=== PATIENT | male | born 1990 | race Caucasian/White ===

== ENCOUNTER 2020-03-15 08:34 | Emergency (ER) | payer OTHER, BC ==
[2020-03-15] MEDS ORDERED: Bupivacaine 0.5% 10 ML SDV INJECT ONE (08:55)
--- NOTE | 2020-03-15 08:57 | EDM.PDOC ---
ED HPI GENERAL MEDICAL PROBLEM - General Chief Complaint: Upper Extremity Injury/Pain Stated Complaint: STAPLE IN RIGHT THUMB Time Seen by Provider: 03/15/20 08:52 Source of Information: Reports: Patient History Limitations: Reports: No Limitations - History of Present Illness INITIAL COMMENTS - FREE TEXT/NARRATIVE: 29-year-old male presents to the ED with a large inch and a half staple embedded deeply in the radial aspect of his thumb adjacent to the nailbed that protrudes through the volar surface. This injury occurred at work this morning at about 0730 hrs. Tetanus toxoid was updated today. He he comes to the ED to have the foreign body removed. 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.) - Related Data Allergies Allergy/AdvReac Type Severity Reaction Status Date / Time No Known Allergies Allergy Verified 03/15/20 08:44 Home Meds: Home Meds Doxycycline [Vibramycin 25 MG/5 ML Susp] 100 mg PO Q12H #14 bottle 03/15/20 [Rx] Social & Family History - Living Situation & Occupation Occupation: Employed Review of Systems - Review of Systems Review Of Systems: See Below Constitutional: Reports: No Symptoms Eyes: Reports: No Symptoms Ears: Reports: No Symptoms Nose: Reports: No Symptoms Mouth/Throat: Reports: No Symptoms Respiratory: Reports: No Symptoms Cardiovascular: Reports: No Symptoms GI/Abdominal: Reports: No Symptoms Genitourinary: Reports: No Symptoms Musculoskeletal: Reports: Other (Has a inch and a half staple protruding from the radial aspect of his distal right thumb from the dorsal aspect protruding through the volar aspect and the staple is deeply embedded in the tissues.) Skin: Reports: Other Neurological: Reports: No Symptoms Psychiatric: Reports: No Symptoms ED EXAM, GENERAL - Physical Exam Exam: See Below (Patient has appropriate sensation to the distal aspect of his right thumb.) Exam Limited By: No Limitations General Appearance: Alert, WD/WN, Mild Distress Peripheral Pulses: 3+: Carotid (L), Carotid (R) Extremities: Other (Right thumb reveals a staple that is an inch and half long that is penetrated to the dorsal aspect adjacent to his right radial nailbed and protrudes through the volar aspect of the thumb and its entire length. The mid body portion of the staple is deeply embedded in the soft tissues and is not easily available to for extraction) Neurological: Alert Psychiatric: Normal Affect Skin Exam: Warm, Dry, Intact, Normal Color, No Rash Course - Vital Signs Last Recorded V/S: Last Vital Signs Temp 36.5 C 03/15/20 08:45 Pulse 70 03/15/20 08:45 Resp 18 03/15/20 08:45 BP 127/84 03/15/20 08:45 Pulse Ox 100 03/15/20 08:45 - Orders/Labs/Meds Meds: Medications Discontinued Medications Generic Name Dose Route Start Last Admin Trade Name Bladeq PRN Reason Stop Dose Admin Bupivacaine HCl 10 ml 03/15/20 08:55 03/15/20 09:00 Sensorcaine-Mpf 0.5% INJECT 03/15/20 08:56 10 ml ONETIME ONE Administration - Radiology Interpretation Free Text/Narrative:: 29-year-old male presents to the ED 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 Injury occurred in the workplace at 0730 hrs. this morning. The staple has been becoming deeply embedded in the dorsal aspect of his right thumb and protrudes to the volar aspect and it is buried deeply along in the tissues. Plan will be to anesthetize his thumb with bupivacaine 0.5% to provide digital block and then remove the staple. Tetanus toxoid is up-to-date. - Re-Assessments/Exams Free Text/Narrative Re-Assessment/Exam: 03/15/20 09:47 the staple was removed via the dorsal aspect of the thumb it is entered the soft tissues of the thumb and is missed the bone. It was removed easily with the aid of a needle forceps. Active bleeding occurred at both puncture wound sites and a 1 suture was placed adjacent to the nailbed to provide hemostasis. Suture to be removed in 10 days time. Going to patient that put the patient on doxycycline 100 mg twice daily for 7 days to prevent secondary wound infection. Fingercot dressing will be placed today should be left in place for 2 days. Departure - Departure Time of Disposition: 09:48 Disposition: Home, Self-Care 01 Condition: Fair Clinical Impression: Puncture wound of right thumb w/o foreign body w/o damage to nail Qualifiers: Encounter type: initial encounter Qualified Code(s): S61.031A - Puncture wound without foreign body of right thumb without damage to nail, initial encounter - Discharge Information *PRESCRIPTION DRUG MONITORING PROGRAM REVIEWED*: Not Applicable *COPY OF PRESCRIPTION DRUG MONITORING REPORT IN PATIENT YANIRA: Not Applicable Prescriptions: Doxycycline [Vibramycin 25 MG/5 ML Susp] 100 mg PO Q12H #14 bottle Instructions: Puncture Wound, [id number] Referrals: PCP,None [Primary Care Provider] - Forms: ED Department Discharge, ED Return to Work/School Form Additional Instructions: Evaluation in the emergency room this morning in regards to a large staple that accidentally penetrated through the dorsal aspect of your right thumb and came out through the volar aspect. This approximately inch and a half long. Was removed with the aid of a digital block of the thumb without any difficulty. There does not appear to be any bony injury clinically. X-rays were therefore not obtained. Wound was cleansed. Suggest antibiotic doxycycline 100 mg twice daily for the next 7 days to prevent secondary wound infection. The single suture placed dorsally could be removed in 10 days time. Initial dressing is a fingercot dressing it which could be remain in place for the next 48 hours. After this it should be removed and wound is to be cleansed daily with soap and water. Showering is okay. Then apply topical antibiotic such as bacitracin or Polysporin once daily on the wounds to keep them from getting infected. Cover with ith a bandage to keep clean Sepsis Event Note - Focused Exam Vital Signs: Vital Signs Temp Pulse Resp BP Pulse Ox 03/15/20 08:45 36.5 C 70 18 127/84 100 Date Exam was Performed: 03/15/20 Time Exam was Performed: 09:46
== END 2020-03-15 10:12 | disposition home or self-care (01) ==
LOC: JD.ED 08:34
DX: S61.031A Puncture wound without foreign body of right thumb without damage to nail, initial encounter (principal); W29.8XXA Contact with other powered hand tools and household machinery, initial encounter
CPT/HCPCS: 12001; 99283; J3490